=== PATIENT | male | born 1950 | race Caucasian/White ===

== ENCOUNTER 2020-05-09 10:04 | Outpatient (CLI) | payer BC, SELFPAY ==
--- NOTE | 2020-06-10 12:27 | W.CARDEVENT ---
Date of service: 06/10/20 Time of Service: 12:27 Cardiac Event Recorder Cardiac Event Note: This is a cardiac event monitor that recorded from May 09 through June 07, 2020 Predominant rhythm was sinus with average heart rate of 59 bpm. Minimum was 50, maximum 115 There was no atrial fibrillation Patient symptoms of flutter and skipped beats corresponded to atrial premature beats, atrial runs and atrial pairs The atrial runs were generally self-limited and less than 15 beats in duration There were at least 2 episodes of heart rates of approximately 160, duration unknown, symptoms unclear; these appeared most consistent with supraventricular tachycardia and not sinus tachycardia
== END 2020-05-09 10:24 ==
PROVIDERS: PCP Internal Medicine; Visit Provider Internal Medicine Interventional Cardiology
DX: I48.91 Unspecified atrial fibrillation (principal)
CPT/HCPCS: 93270